=== PATIENT | female | born 1990 | race African-American/Black ===

== ENCOUNTER 2017-06-04 00:58 | Emergency (ER) | payer MEDICAID ==
[~2017-06-04] VITALS: Ht 157.5 cm; Wt 119.7 kg
[2017-06-04 01:59] LABS: Urine Amorphous Crystal MOD /hpf (None Seen); Urine Bacteria MOD /hpf (None Seen); Urine Blood Negative /uL (Negative); Urine Hyaline Cast FEW /lpf (0 - 2); Urine Specific Gravity 1.021 (1.001-1.035); Urine WBC 11 /hpf (0 - 5)
[2017-06-04 05:59] LABS: Basophils # (auto) 0.1 uL; Basophils % (auto) 0.7 % (0.0-2.0); Eosinophils # (auto) 0.1 uL; Lymphocytes # (auto) 3.2 uL; Mean Corpuscular Hemoglobin 29.5 pg (28.0-32.0); Monocytes # (auto) 1.1 uL; Neutrophils % (auto) 61.8 % (37.0-80.0); Nucleated Red Blood Cells % 0.1 %
[2017-06-04 06:08] LABS: Albumin 3.4 g/dL (3.4-5.0); BUN/Creatinine Ratio 13.9; Calcium 8.6 mg/dL (8.5-10.1); Potassium 3.3 mmol/L (3.5-5.1)
[2017-06-04 06:11] LABS: Amylase 41 U/L (25-115); Bilirubin, Total 0.2 mg/dL (0.2-1.0); Lipase 104 U/L (73-393); Total Protein 7.5 g/dL (6.4-8.2)
[2017-06-04] MEDS ORDERED: SODIUM CHLORIDE 0.9% 1,000 ML IV ONE (07:31)
[2017-06-04 07:41] LABS: Eosinophils % (auto) 1.1 % (0.0-7.0); Hematocrit 42.1 % (36.0-46.0); Hemoglobin 13.7 g/dL (12.2-16.2); Lymphocytes % (auto) 27.2 % (10.0-50.0); Mean Corpuscular Hgb Conc. 32.5 g/dL (32.0-36.0); Mean Corpuscular Volume 90.8 fL (80.0-100.0); Monocytes % (auto) 9.2 % (0.0-12.0); Neutrophils # (auto) 7.2 uL; Platelet Count (auto) 320 10^3/uL (140-450); Red Blood Cells 4.64 10^6/uL (4.0-5.20); White Blood Cell 11.6 10^3/uL (4.4-10.8)
[2017-06-04] MEDS ORDERED: cefTRIAXone 1GM/10ml IVPUSH 10 ML IV ONE (07:45)
[2017-06-04] MEDS ORDERED: POTASSIUM CHL 10% (20 MEQ/15ML) 15ml ORAL SOLN PO ONE (07:45)
[2017-06-04] MEDS ORDERED: ONDANSETRON HCL 4 MG/2 ML VIAL IV ONE (07:45)
[2017-06-04 10:15] VITALS: BP 93/69
== END 2017-06-04 11:35 | disposition home or self-care (01) ==
LOC: ER 01:03
DX: O23.41 Unspecified infection of urinary tract in pregnancy, first trimester (principal); O26.891 Other specified pregnancy related conditions, first trimester; J45.909 Unspecified asthma, uncomplicated; E87.6 Hypokalemia; K52.9 Noninfective gastroenteritis and colitis, unspecified; Z3A.01 Less than 8 weeks gestation of pregnancy
CPT/HCPCS: 36415; 76801; 76817; 80053; 81001; 81025; 82150; 83690; 83735; 84702; 85025; 96361; 96374; 96375; 99285; J2405; J7030

== ENCOUNTER 2017-06-09 13:30 | Emergency (ER) | payer MEDICAID ==
[~2017-06-09] VITALS: Ht 157.5 cm; Wt 119.7 kg
[2017-06-09 13:33] VITALS: BP 125/68
== END 2017-06-09 16:26 | disposition home or self-care (01) ==
LOC: ER 13:30
DX: O26.891 Other specified pregnancy related conditions, first trimester (principal); R10.30 Lower abdominal pain, unspecified; R42 Dizziness and giddiness; O99.511 Diseases of the respiratory system complicating pregnancy, first trimester; J45.909 Unspecified asthma, uncomplicated; Z3A.01 Less than 8 weeks gestation of pregnancy
CPT/HCPCS: 93005

== ENCOUNTER 2019-06-15 13:26 | Emergency (ER) | payer MEDICAID ==
[~2019-06-15] VITALS: Ht 157.5 cm; Wt 129.3 kg
[2019-06-15 16:41] VITALS: BP 145/93
== END 2019-06-15 17:11 | disposition home or self-care (01) ==
LOC: ER 13:28
DX: J06.9 Acute upper respiratory infection, unspecified (principal); J02.9 Acute pharyngitis, unspecified; J45.909 Unspecified asthma, uncomplicated
CPT/HCPCS: 71046

== ENCOUNTER 2022-04-20 09:29 | Emergency (ER) | payer MEDICAID ==
[~2022-04-20] VITALS: Ht 157.5 cm; Wt 134.2 kg
[2022-04-20] MEDS ORDERED: cefTRIAXone SOD 1,000 MG VL IM ONE (12:00)
[2022-04-20] MEDS ORDERED: CLINDAMYCIN 600 MG/4 ML VL IM ONE (12:00)
[2022-04-20] MEDS ORDERED: CLIN-203 PO (12:05)
[2022-04-20] MEDS ORDERED: CEPH-510 PO (12:05)
[2022-04-20] MEDS ORDERED: GEN03OS OP (12:05)
[2022-04-20] MEDS ORDERED: IBUPROFEN 800 MG TAB PO ONE (13:30)
[2022-04-20 14:59] VITALS: BP 125/87
== END 2022-04-20 15:09 | disposition home or self-care (01) ==
LOC: ER 09:29
DX: H00.036 Abscess of eyelid left eye, unspecified eyelid (principal)
CPT/HCPCS: 70486; 96372; 99284; J0696